=== PATIENT | male | born 1990 ===

== ENCOUNTER 2018-10-06 03:54 | Emergency (ER) | payer SELFPAY ==
--- NOTE | 2018-10-06 04:37 | C.PDOC ---
History Of Present Illness 28 years old male presents to the ED brought in by [employer] and EMS for public intoxication. Denies any SI/HI. HPI limited due to patient's intoxicated status. Time Seen by Provider: 10/06/18 04:28 Chief Complaint (Nursing): Substance Abuse History Per: Patient, EMS History/Exam Limitations: intoxication Onset/Duration Of Symptoms: Hrs Current Symptoms Are (Timing): Still Present Suicide/Self Injury Attempted (Context): None Modifying Factor(s): Alcohol Associated Symptoms: denies: Suicidal Thoughts, Suicidal Plan Involuntary Hold By: None Past Medical History Reviewed: Historical Data, Nursing Documentation, Vital Signs Vital Signs: Last Vital Signs Temp 98.3 F 10/06/18 04:15 Pulse 74 10/06/18 04:15 Resp 22 10/06/18 04:15 BP 112/78 10/06/18 04:15 Pulse Ox 98 10/06/18 04:15 - Medical History PMH: No Chronic Diseases Other Surgeries: Hx of surgeries Family History: States: No Known Family Hx - Social History Hx Alcohol Use: Yes Hx Substance Use: No - Immunization History Hx Tetanus Toxoid Vaccination: No Hx Influenza Vaccination: No Hx Pneumococcal Vaccination: No Review Of Systems Except As Marked, All Systems Reviewed And Found Negative. (limited due to intoxication status) Gastrointestinal: Negative for: Nausea, Vomiting, Abdominal Pain Neurological: Negative for: Headache Psych: Negative for: Suicidal ideation Physical Exam - Physical Exam Appears: Non-toxic, Other (thin male, intoxicated, unable to be redirected) Skin: Warm, Dry, No Rash Head: Normacephalic Eye(s): bilateral: Normal Inspection Nose: Normal Oral Mucosa: Other (alcohol smell on breath ) Neck: Supple Chest: Symmetrical Cardiovascular: Rhythm Regular Respiratory: Normal Breath Sounds, No Rales, No Rhonchi, No Wheezing Neurological/Psych: Other (intoxicated, aggressive ) Gait: Unsteady ED Course And Treatment O2 Sat by Pulse Oximetry: 98 (RA) Pulse Ox Interpretation: Normal Reevaluation Time: 05:54 Reassessment Condition: Improved Medical Decision Making Medical Decision Making: alcohol abuse no injuries Disposition Doctor Will See Patient In The: Office Counseled Patient/Family Regarding: Studies Performed, Diagnosis - Disposition Referrals: Alcoholics Anonymous [Outside] [facility] [Outside] [employer] [facility] [Outside] [facility] [Outside] [facility] [Outside] [facility] [Outside] Disposition: HOME/ ROUTINE Disposition Time: 05:54 Condition: GOOD Instructions: Alcohol Use - When Is Drinking a Problem?, Alcohol Abuse and Alcoholism (DC) Forms: [employer] (Japanese) Print Language: GRENADIAN - Clinical Impression Clinical Impression: Alcohol abuse - Scribe Statement The provider has reviewed the documentation as recorded by the Scribe Sary Randle All medical record entries made by the Ranjanaibcem were at my direction and personally dictated by me. I have reviewed the chart and agree that the record accurately reflects my personal performance of the history, physical exam, medical decision making, and the department course for this patient. I have also personally directed, reviewed, and agree with the discharge instructions and disposition.
[2018-10-06 06:02] VITALS: BP 101/63; PULSE 78; RESP 18; TEMP 97.6
[2018-10-06 06:30] VITALS: O2SAT 98
== END 2018-10-06 06:14 | disposition home or self-care (01) ==
LOC: C.ER 03:54
DX: F10.10 Alcohol abuse, uncomplicated (principal)